=== PATIENT | female | born 1975 | race Caucasian/White ===

== ENCOUNTER 2017-06-14 19:01 | Emergency (ER) | payer MEDICAID, OTHER ==
[2017-06-14 20:25] LABS: Basophils % (A) 0 %; Eosinophils % (A) 0 %; HCT 43.1 % (34.0-46.0); Lymphocytes # (A) 1.3 k/uL (1.0-4.8); Lymphocytes % (A) 12 %; MCH 28.7 pg (25.0-35.0); MCHC 32.5 g/dL (31.0-37.0); MCV 88.3 fL (80.0-100.0); Mean Platelet Volume 6.7; Monocytes # (A) 0.3 k/uL (0-1.0); Monocytes % (A) 3 %; Neutrophils % (A) 84 %; Platelet Count 324 k/uL (150-450); RBC 4.89 m/uL (3.80-5.40); RDW 12.7 % (11.5-15.5); WBC 10.7 k/uL (3.8-10.6)
[2017-06-14 20:34] LABS: ALT 18 U/L (9-52); AST 19 U/L (14-36); Albumin 4.8 g/dL (3.5-5.0); Alkaline Phosphatase 57 U/L (38-126); Amylase 69 U/L (30-110); Anion Gap 13 mmol/L; Blood Urea Nitrogen 7 mg/dL (7-17); Calcium 10.6 mg/dL (8.4-10.2); Carbon Dioxide 24 mmol/L (22-30); Chloride 102 mmol/L (98-107); Glucose 105 mg/dL (74-99); Lipase 99 U/L (23-300); Potassium 3.9 mmol/L (3.5-5.1); Sodium 139 mmol/L (137-145); Total Bilirubin 0.6 mg/dL (0.2-1.3)
[2017-06-14] MEDS ORDERED: ONDANSETRON 4 MG/2 ML VIAL IVP STA (20:44)
[2017-06-14] MEDS ORDERED: SODIUM CHLORIDE 0.9% 1,000 ML IV STA (20:44)
[2017-06-14] MEDS ORDERED: FAMOTIDINE 20 MG/2 ML VIAL IV STA (20:44)
[2017-06-14] MEDS ORDERED: RX INFO: IV CONTRAST WAS GIVEN 1 EACH MISC MISCELLANE PRN (20:45)
--- NOTE | 2017-06-14 20:57 | ED ---
General Adult HPI - General Chief complaint: Abdominal Pain Stated complaint: ABDOMINAL PAIN Time Seen by Provider: 06/14/17 20:38 Source: patient, RN notes reviewed Mode of arrival: ambulatory Limitations: no limitations - History of Present Illness Initial comments: 42-year-old female presents to the emergency department with epigastric abdominal pain. Patient states this started around 9 AM this morning. She states if she lays back the pain is worse she feels better with leaning forward. She states some nausea no vomiting. The patient has had no cough. Patient states there is been no fevers. She denies any lower abdominal pain. She denies any history of this in the past. She states she had one drink last night. Patient states she was concerned because her pain has just continued for the last 12 hours. She was concerned due to the continued pain and the fact it does not seem to be improving so she thought that she should be seen. Patient denies any recent fever, chills, shortness of breath, chest pain, back pain, mvomiting, numbness or tingling, dysuria or hematuria, constipation or diarrhea, headaches or visual changes, or any other current symptoms. - Related Data Home Medications Medication Instructions Recorded Confirmed Aspirin/Acetaminophen/Caffeine 1 - 2 tab PO Q6H PRN 06/14/17 06/14/17 [Excedrin Migraine Caplet] Magnesium Oxide [Mag-Ox] 250 mg PO DAILY 06/14/17 06/14/17 Venlafaxine HCl [Effexor] 150 mg PO DAILY 06/14/17 06/14/17 Previous Rx's Medication Instructions Recorded Mag Hydrox/Al Hydrox/Simeth 10 ml PO QID 10 Days ml 06/14/17 [Maalox] Allergies Allergy/AdvReac Type Severity Reaction Status Date / Time sulfamethoxazole Allergy Rash/Hives Verified 06/14/17 20:51 [From Bactrim] trimethoprim [From Bactrim] Allergy Rash/Hives Verified 06/14/17 20:51 Review of Systems ROS Statement: Those systems with pertinent positive or pertinent negative responses have been documented in the HPI. ROS Other: All systems not noted in ROS Statement are negative. Past Medical History Additional Past Medical History / Comment(s): neurofibromytosis type II. History of Any Multi-Drug Resistant Organisms: None Reported Past Surgical History: Adenoidectomy, Section, Tonsillectomy Additional Past Surgical History / Comment(s): craniotomy X3. skin cancer removal from right shoulder. Past Psychological History: Depression Smoking Status: Never smoker Past Alcohol Use History: Occasional Past Drug Use History: None Reported General Exam - General Exam Comments Initial Comments: General: The patient is awake and alert, in no distress, and does not appear acutely ill. Eye: Pupils are equal, round and reactive to light, extra-ocular movements are intact; there is normal conjunctiva bilaterally. No signs of icterus. Ears, nose, mouth and throat: There are moist mucous membranes. Neck: The neck is supple, there is no tenderness. Cardiovascular: There is a regular rate and rhythm. No murmur, rub or gallop is appreciated. Respiratory: Lungs are clear to auscultation, respirations are non-labored, breath sounds are equal. No wheezes, stridor, rales, or rhonchi. Gastrointestinal: Soft, non-distended, epigastric tender abdomen without masses or organomegaly noted. There is no rebound or guarding present. No CVA tenderness. Bowel sounds are unremarkable. Back: There is no tenderness to palpation in the midline. There is no obvious deformity. No rashes noted. Musculoskeletal: Normal ROM, no tenderness, There is no pedal edema. There is no calf tenderness or swelling. Sensation intact. Pulses equal bilaterally 2+. Neurological: CN II-XII intact, There are no obvious motor or sensory deficits. Coordination appears grossly intact. Speech is normal. Skin: Skin is warm and dry and no rashes or lesions are noted. Psychiatric: Cooperative, appropriate mood & affect, normal judgment. Limitations: no limitations Course Vital Signs 06/14/17 06/14/17 19:19 23:33 Temperature 98.8 F Pulse Rate 83 82 Respiratory 16 18 Rate Blood Pressure 112/65 122/60 O2 Sat by Pulse 100 100 Oximetry Medical Decision Making - Medical Decision Making 42-year-old female presents for epigastric abdominal pain. At this time patient does appear to have improvement with the GI cocktail. At this time we discussed most likely a gastritis. However there is other etiologies and when to return.. We discussed follow-up with GI. We will start the patient on medication for home. Patient is in agreement this plan all questions have been answered. Patient will be discharged. We did discuss follow-up on the urine culture. - Lab Data Result diagrams: 06/14/17 20:15 06/14/17 20:15 Lab Results 06/14/17 06/14/17 06/14/17 Range/Units 20:00 20:00 20:15 WBC (3.8-10.6) k/uL RBC (3.80-5.40) m/uL Hgb (11.4-16.0) gm/dL Hct (34.0-46.0) % MCV (80.0-100.0) fL MCH (25.0-35.0) pg MCHC (31.0-37.0) g/dL RDW (11.5-15.5) % Plt Count (150-450) k/uL Neutrophils % % Lymphocytes % % Monocytes % % Eosinophils % % Basophils % % Neutrophils # (1.3-7.7) k/uL Lymphocytes # (1.0-4.8) k/uL Monocytes # (0-1.0) k/uL Eosinophils # (0-0.7) k/uL Basophils # (0-0.2) k/uL Sodium 139 (137-145) mmol/L Potassium 3.9 (3.5-5.1) mmol/L Chloride 102 (98-107) mmol/L Carbon Dioxide 24 (22-30) mmol/L Anion Gap 13 mmol/L BUN 7 (7-17) mg/dL Creatinine 0.60 (0.52-1.04) mg/dL Est GFR (CKD-EPI)AfAm >90 (>60 ml/min/1.73 sqM) Est GFR (CKD-EPI)NonAf >90 (>60 ml/min/1.73 sqM) Glucose 105 H (74-99) mg/dL Calcium 10.6 H (8.4-10.2) mg/dL Total Bilirubin 0.6 (0.2-1.3) mg/dL AST 19 (14-36) U/L ALT 18 (9-52) U/L Alkaline Phosphatase 57 (38-126) U/L Total Protein 8.0 (6.3-8.2) g/dL Albumin 4.8 (3.5-5.0) g/dL Amylase 69 (30-110) U/L Lipase 99 (23-300) U/L Urine Color Yellow Urine Appearance Cloudy H (Clear) Urine pH 8.0 (5.0-8.0) Ur Specific Bonner 1.016 (1.001-1.035) Urine Protein Negative (Negative) Urine Glucose (UA) Negative (Negative) Urine Ketones Negative (Negative) Urine Blood Negative (Negative) Urine Nitrite Negative (Negative) Urine Bilirubin Negative (Negative) Urine Urobilinogen <2.0 (<2.0) mg/dL Ur Leukocyte Esterase Large H (Negative) Urine RBC 1 (0-5) /hpf Urine WBC 12 H (0-5) /hpf Ur Squamous Epith Cells 5 H (0-4) /hpf Urine Bacteria Occasional H (None) /hpf Urine Mucus Rare H (None) /hpf Urine HCG, Qual Not Detected (Not Detectd) 06/14/17 Range/Units 20:15 WBC 10.7 H (3.8-10.6) k/uL RBC 4.89 (3.80-5.40) m/uL Hgb 14.0 (11.4-16.0) gm/dL Hct 43.1 (34.0-46.0) % MCV 88.3 (80.0-100.0) fL MCH 28.7 (25.0-35.0) pg MCHC 32.5 (31.0-37.0) g/dL RDW 12.7 (11.5-15.5) % Plt Count 324 (150-450) k/uL Neutrophils % 84 % Lymphocytes % 12 % Monocytes % 3 % Eosinophils % 0 % Basophils % 0 % Neutrophils # 9.0 H (1.3-7.7) k/uL Lymphocytes # 1.3 (1.0-4.8) k/uL Monocytes # 0.3 (0-1.0) k/uL Eosinophils # 0.0 (0-0.7) k/uL Basophils # 0.0 (0-0.2) k/uL Sodium (137-145) mmol/L Potassium (3.5-5.1) mmol/L Chloride (98-107) mmol/L Carbon Dioxide (22-30) mmol/L Anion Gap mmol/L BUN (7-17) mg/dL Creatinine (0.52-1.04) mg/dL Est GFR (CKD-EPI)AfAm (>60 ml/min/1.73 sqM) Est GFR (CKD-EPI)NonAf (>60 ml/min/1.73 sqM) Glucose (74-99) mg/dL Calcium (8.4-10.2) mg/dL Total Bilirubin (0.2-1.3) mg/dL AST (14-36) U/L ALT (9-52) U/L Alkaline Phosphatase (38-126) U/L Total Protein (6.3-8.2) g/dL Albumin (3.5-5.0) g/dL Amylase (30-110) U/L Lipase (23-300) U/L Urine Color Urine Appearance (Clear) Urine pH (5.0-8.0) Ur Specific Bonner (1.001-1.035) Urine Protein (Negative) Urine Glucose (UA) (Negative) Urine Ketones (Negative) Urine Blood (Negative) Urine Nitrite (Negative) Urine Bilirubin (Negative) Urine Urobilinogen (<2.0) mg/dL Ur Leukocyte Esterase (Negative) Urine RBC (0-5) /hpf Urine WBC (0-5) /hpf Ur Squamous Epith Cells (0-4) /hpf Urine Bacteria (None) /hpf Urine Mucus (None) /hpf Urine HCG, Qual (Not Detectd) - Radiology Data Radiology results: report reviewed, image reviewed Disposition Clinical Impression: Abdominal pain, Gastritis Disposition: HOME SELF-CARE Condition: Stable Instructions: Abdominal Pain (ED), Gastritis (ED) Additional Instructions: Please use medication as discussed. Please follow up with family doctor if symptoms have not improved over the next two days. Please return to the emergency room if your symptoms increase or worsen or for any other concerns. Prescriptions: Mag Hydrox/Al Hydrox/Simeth [Maalox] 10 ml PO QID 10 Days ml Referrals: Onel Valenzulea DO [Primary Care Provider] - 1-2 days Clyde Denis MD [STAFF PHYSICIAN] - 1-2 days Time of Disposition: 23:45
[2017-06-14 21:42] LABS: Appearance,Urine Cloudy (Clear); Bacteria,Urine Occasional /hpf; Bilirubin,Urine Negative (Negative); Blood,Urine Negative (Negative); Color,Urine Yellow; Glucose,Urine (UA) Negative (Negative); Ketones,Urine Negative (Negative); Leukocyte Esterase,Urine Large (Negative); Mucus,Urine Rare /hpf; Nitrite,Urine Negative (Negative); Protein,Urine Negative (Negative); RBC,Urine 1 /hpf (0-5); Specific Gravity,Urine 1.016 (1.001-1.035); Squamous Epithelial Cell,Urine 5 /hpf (0-4); Urobilinogen,Urine <2.0 mg/dL (<2.0); WBC,Urine 12 /hpf (0-5)
--- NOTE | 2017-06-14 22:43 | CT ---
EXAMINATION TYPE: CT abdomen pelvis w con DATE OF EXAM: 06/14/2017 COMPARISON: NONE HISTORY: Epigastric pain, nausea and fever today. CT DLP: 375.7 mGycm Automated exposure control for dose reduction was used. TECHNIQUE: Helical acquisition of images was performed from the lung bases through the pelvis. CONTRAST: Performed without Oral Contrast and with IV Contrast, patient injected with 100 mL of Omnipaque 300. FINDINGS: Lung bases are clear. There is no pleural effusion. Heart size is normal. Liver spleen pancreas gallbladder appear normal. Bile ducts are not dilated. There is no adrenal mass. Kidneys show satisfactory contrast opacification. There is no hydronephrosi s. Ureters are not dilated. There is no retroperitoneal adenopathy. There is no ascites. Bladder dist ends smoothly. There is no free fluid in the pelvis. Appendix is not seen. There is no sign of append icitis. I see no bony destructive process. Lumbar spine is intact. Uterus is retroverted. I see no in testinal wall thickening. There are no dilated loops. IMPRESSION: NEGATIVE CT SCAN OF THE ABDOMEN AND PELVIS. I DO NOT SEE A CAUSE FOR EPIGASTRIC PAIN.
[2017-06-14] MEDS ORDERED: MAG HYDROX/AL HYDROX/SIMETH 30 ML, HYOSCYAMINE ELIXIR 10 ML, CIMETIDINE HCL 300 MG, LID... PO STA ×4 (23:01)
[2017-06-14 23:34] VITALS: RESP 18
[2017-06-14 23:58] VITALS: BP 121/69; PULSE 73; TEMP 98.6
== END 2017-06-14 23:58 | disposition home or self-care (01) ==
LOC: EC 19:01
DX: K29.70 Gastritis, unspecified, without bleeding (principal); F32.9 Major depressive disorder, single episode, unspecified; Z79.899 Other long term (current) drug therapy; Z88.2 Allergy status to sulfonamides
CPT/HCPCS: 36415; 80053; 82150; 83690; 85025; 81001; 81025; 87086; 74177; 99284; 96374; 96375; 96361; J2405; Q9967

== ENCOUNTER 2020-08-20 11:19 | Day surgery (SDC) | payer MEDICAID ==
[2020-08-16 15:21] VITALS: BMI 23.3
--- NOTE | 2020-08-20 09:09 | P.HPOB ---
History of Present Illness H&P Date: 08/20/20 Chief Complaint: menorrhagia 45 year old presents for D&C hysteroscopy and endometrial ablation with NovaSure. Review of Systems All systems: negative Constitutional: Denies chills, Denies fever Eyes: denies blurred vision, denies pain Ears, nose, mouth and throat: Denies headache, Denies sore throat Cardiovascular: Denies chest pain, Denies shortness of breath Respiratory: Denies cough Gastrointestinal: Denies abdominal pain, Denies diarrhea, Denies nausea, Denies vomiting Genitourinary: Denies dysuria, Denies hematuria Musculoskeletal: Denies myalgias Integumentary: Denies pruritus, Denies rash Neurological: Denies numbness, Denies weakness Psychiatric: Denies anxiety, Denies depression Endocrine: Denies fatigue, Denies weight change Past Medical History Past Medical History: Cancer, Hearing Disorder / Deafness Additional Past Medical History / Comment(s): Hx Skin Cancer on right shoulder. Deaf in left ear. Neurofibromatosis Type II (non-cancerous brain tumors). PFO (Patent Foramen Ovale). History of Any Multi-Drug Resistant Organisms: None Reported Past Surgical History: Adenoidectomy, Section, Tonsillectomy Additional Past Surgical History / Comment(s): Craniotomy X5. Skin Cancer remoedl from right shoulder. Past Anesthesia/Blood Transfusion Reactions: No Reported Reaction Past Psychological History: Depression Smoking Status: Never smoker Past Alcohol Use History: Occasional Past Drug Use History: None Reported - Past Family History Mother Family Medical History: No Reported History Medications and Allergies Home Medications Medication Instructions Recorded Confirmed Type ARIPiprazole [Abilify] 2 mg PO 1500 08/16/20 08/16/20 History Topiramate [Topamax] 50 mg PO BID 08/16/20 08/16/20 History Venlafaxine HCl [Effexor XR] 225 mg PO 1500 08/16/20 08/16/20 History Allergies Allergy/AdvReac Type Severity Reaction Status Date / Time sulfamethoxazole Allergy Rash/Hives Verified 08/16/20 15:07 [From Bactrim] trimethoprim [From Bactrim] Allergy Rash/Hives Verified 08/16/20 15:07 Exam Osteopathic Statement: *. No significant issues noted on an osteopathic structural exam other than those noted in the History and Physical/Consult. HEart: RRR Lungs: CTAB Abdomen: soft, nontender Extremeties: neg addison's Assessment and Plan (1) Menorrhagia Status: Acute Code(s): N92.0 - EXCESSIVE AND FREQUENT MENSTRUATION WITH REGULAR CYCLE SNOMED Code(s): 401718489 Plan: 1. D&C hysteroscopy and endometrial ablation with NovaSure
[~2020-08-20 11:19] MED LIST: DEXAMETHASONE SOD PHOSPHATE 4 MG/ML 1 ML VIAL IV ONE; HYDROmorphone 0.5 MG/0.5 ML SYRINGE IVP PRN; LACTATED RINGERS 1,000 ML IV SCH; ONDANSETRON 4 MG/2 ML VIAL IVP ONE; Pre Op ABX Message 1 EACH MISC MISCELLANE ONE
[2020-08-20] MEDS ORDERED: LIDOCAINE 1% (10MG/ML) FOR IV START INTRADERMA ONE (11:53)
[2020-08-20] MEDS ORDERED: MIDAZOLAM 2 MG/2 ML VIAL ONE (13:10)
[2020-08-20] MEDS ORDERED: LIDOCAINE 1% INJ 10MG/ML (20 ML MDV) ONE (13:10)
[2020-08-20] MEDS ORDERED: PROPOFOL 10 MG/ML 20 ML VIAL IV ONE (13:10)
[2020-08-20] MEDS ORDERED: fentaNYL (PF) 50 MCG/ML 2 ML AMP ONE (13:10)
[2020-08-20] MEDS ORDERED: KETOROLAC 15 MG/ML 1 ML VIAL ONE (13:10)
--- NOTE | 2020-08-20 13:43 | P.OP ---
Date of Procedure: 08/20/20 Preoperative Diagnosis: 1. Menorrhagia Postoperative Diagnosis: 1. Menorrhagia Procedure(s) Performed: D&C hysteroscopy and endometrial ablation with NovaSure Anesthesia: MAC Surgeon: Sabrina Paniagua Estimated Blood Loss (ml): 2 IV fluids (ml): 300 Urine output (ml): 70 Pathology: other (endometrial currettings) Condition: stable Disposition: PACU Operative Findings: Uterus sounded to 8cm. cavity length 6 cm, width 4.5 cm, time of ablation 149 W for 51 seconds. Adequate ablation after NovaSure. Description of Procedure: Patient is taken the operating room where general anesthesia was obtained wit ligia regan. She was prepped and draped in normal sterile fashion dorsal lithotomy position, legs placed in the candy cane stirrups. Bladder was drained of all urine. Weighted speculum placed in the vagina and the anterior lip the cervix was grasped with serial tooth tenaculum. The uterus sounded to 8 cm and the cervix under 2 cm making the cavity length 6 cm. The cervix was dilated to #8 Hegar dilator. Hysteroscopy was then performed. Both ostia were visualized and there was a smooth contour of the uterus. Sharp curet was then gently used to obtain endometrial curettings. The NovaSure was introduced into the uterus with a cavity length of 6.5 cm, width 3.5 cm. after cavity assessment was passed, the time of ablation was 51 seconds at 149 W. Hysteroscopy was again performed and adequate ablation was noted. All instruments removed from the vagina. Patient tolerated the procedure well, sponge and instrument counts were correct 2 and she was taken to recovery in stable condition.
[2020-08-20 13:51] VITALS: TEMP 98.4
[2020-08-20 15:38] VITALS: BP 110/74; PULSE 70; RESP 16
== END 2020-08-20 15:46 | disposition home or self-care (01) ==
LOC: OR 11:19
PROVIDERS: ATTEND Obstetrics & Gynecology
DX: N92.0 Excessive and frequent menstruation with regular cycle (principal); Z85.828 Personal history of other malignant neoplasm of skin; H91.92 Unspecified hearing loss, left ear; Q85.02 Neurofibromatosis, type 2; Q21.1 Atrial septal defect; Z98.891 History of uterine scar from previous surgery; Z90.89 Acquired absence of other organs; Z98.890 Other specified postprocedural states; F32.9 Major depressive disorder, single episode, unspecified; Z79.899 Other long term (current) drug therapy; Z88.2 Allergy status to sulfonamides
CPT/HCPCS: 81025; 88305; 58563; J2250; J1100; J2405; J2001; J3010; J1885; J2704

== ENCOUNTER → 2021-08-27 | Outpatient (CLI) | payer MEDICAID ==
[2021-08-27 15:54] LABS: African American GFR (CKD) 103.2 (60.0-200.0); Anion Gap 12.1 mmol/L (10.00-18.00); BUN/Creat Ratio 8.63 Ratio (12.00-20.00); Blood Urea Nitrogen 6.9 mg/dL (9.0-27.0); Calcium 9.1 mg/dL (8.7-10.3); Carbon Dioxide 18.9 mmol/L (20.0-27.5); Magnesium 2.3 mg/dL (1.5-2.4); Potassium 3.9 mmol/L (3.5-5.5)
== END | disposition home or self-care (01) ==
LOC: LABWHC1 08:52
PROVIDERS: ATTEND Nurse Practitioner
DX: D32.9 Benign neoplasm of meninges, unspecified (principal)
CPT/HCPCS: 36415; 80048; 83735

== ENCOUNTER 2022-07-01 10:47 | Day surgery (SDC) | payer MEDICAID ==
[2022-06-26 15:30] VITALS: BMI 23.3
[~2022-07-01 10:47] MED LIST changes: -DEXAMETHASONE SOD PHOSPHATE 4 MG/ML 1 ML VIAL IV ONE; -HYDROmorphone 0.5 MG/0.5 ML SYRINGE IVP PRN; +LIDOCAINE 1% (10MG/ML) FOR IV START INTRADERMA PRN; -ONDANSETRON 4 MG/2 ML VIAL IVP ONE; -Pre Op ABX Message 1 EACH MISC MISCELLANE ONE
[2022-07-01 11:57] VITALS: TEMP 97.6
[2022-07-01] MEDS ORDERED: PROPOFOL 10 MG/ML 20 ML VIAL IV ONE (12:26)
--- NOTE | 2022-07-01 12:41 | P.PCN ---
Date of Procedure: 07/01/22 Procedure(s) Performed: BRIEF HISTORY: Patient is a 47-year-old [place] female scheduled for an elective colonoscopy as a part of screening for colon cancer. PROCEDURE PERFORMED: Colonoscopy. PREOPERATIVE DIAGNOSIS: Screening for colon cancer. IV sedation per Anesthesia. PROCEDURE: After informed consent was obtained, the patient, was brought into the endoscopy unit. IV sedation was administered by Anesthesia under continuous monitoring. Digital rectal examination was normal. Initially the Olympus CF-160 flexible video colonoscope was then inserted in the rectum, gradually advanced into the cecum without any difficulty. Careful examination was performed as the scope was gradually being withdrawn. Ileocecal valve and the appendiceal orifice were visualized and appeared normal. Prep was excellent. Mucosa of the cecum, ascending colon, transverse colon, descending colon, sigmoid colon, and rectum appeared normal. Retroflexion was performed in the rectum and no lesions were seen. The patient tolerated the procedure well. IMPRESSION: Normal-appearing colon from rectum to cecum no evidence of colorectal neoplasia . RECOMMENDATIONS: Findings of this examination were discussed with the patient as well as a family.. She was advised to have a repeat screening colonoscopy in 10 years.
[2022-07-01 13:14] VITALS: BP 102/67; PULSE 68; RESP 16
== END 2022-07-01 13:22 | disposition home or self-care (01) ==
LOC: ORWHC2ENDO 10:47
PROVIDERS: ATTEND Internal Medicine Gastroenterology
DX: Z12.11 Encounter for screening for malignant neoplasm of colon (principal); K21.9 Gastro-esophageal reflux disease without esophagitis; Z88.8 Allergy status to other drugs, medicaments and biological substances; Z79.899 Other long term (current) drug therapy
CPT/HCPCS: 45378; 81025; J2704

== ENCOUNTER → 2022-11-26 | Outpatient (CLI) | payer MEDICAID ==
--- NOTE | 2022-12-02 08:20 | MM ---
Reason for Exam: Screening (asymptomatic). Patient History: Menarche at age 13. First Full-Term at age 26. Perimenopausal. Other cancer. Risk Values: Trisha 5 year model risk: 0.9%. NCI Lifetime model risk: 10.5%. Tissue Density: The breast tissue is heterogeneously dense. This may lower the sensitivity of mammography. Findings: Analyzed By CAD. There is no suspicious group of microcalcifications or new suspicious mass in either breast. Overall Assessment: Negative, BI-RAD 1 Management: Screening Mammogram of both breasts in [address] [facility] will attempt to contact patient to return for supplemental views and ultrasound if indicated. Patient should continue monthly self-breast exams. A clinical breast exam by your physician is recommended on an annual basis. This exam should not preclude additional follow-up of suspicious palpable abnormalities. Note on Trisha scores and lifetime risk: 1. A Trisha score greater than 3% is considered moderate risk. If this is the case, consider specialist referral to assess eligibility for a risk reducing agent. 2. If overall lifetime risk for the development of breast cancer is 20% or higher, the patient may qualify for future screening with alternating mammogram and breast MRI. Electronically signed and approved by: Suhail Morris DO
== END | disposition home or self-care (01) ==
LOC: RADMAMWWP 15:09
PROVIDERS: ATTEND Obstetrics & Gynecology
DX: Z12.31 Encounter for screening mammogram for malignant neoplasm of breast (principal)
CPT/HCPCS: 77063; 77067

== ENCOUNTER → 2024-02-04 | Outpatient (CLI) | payer MEDICAID ==
--- NOTE | 2024-02-08 08:47 | MM ---
Reason for Exam: Screening (asymptomatic). Last mammogram was performed 1 year(s) and 3 month(s) ago. Patient History: Menarche at age 13. First Full-Term at age 26. Perimenopausal. Other cancer. Last menstrual period: 08/11/2020 Risk Values: Trisha 5 year model risk: 1.0%. NCI Lifetime model risk: 10.3%. Prior Study Comparison: 11/26/2022 Bilateral MG 3D screening mammo w/cad, [facility]. Tissue Density: The breasts are heterogeneously dense, which may obscure small masses. Findings: Analyzed By CAD. Right breast: There is no suspicious group of microcalcifications or new suspicious mass. Left breast: There is no suspicious group of microcalcifications or new suspicious mass. Overall Assessment: Negative, BI-RAD 1 Management: Screening Mammogram of both breasts in [address] [facility] will attempt to contact patient to return for supplemental views and ultrasound if indicated. Patient should continue monthly self-breast exams. A clinical breast exam by your physician is recommended on an annual basis. This exam should not preclude additional follow-up of suspicious palpable abnormalities. Note on Trisha scores and lifetime risk: 1. A Trisha score greater than 3% is considered moderate risk. If this is the case, consider specialist referral to assess eligibility for a risk reducing agent. 2. If overall lifetime risk for the development of breast cancer is 20% or higher, the patient may qualify for future screening with alternating mammogram and breast MRI. [facility], , 02/08/2024 8:44 AM. Electronically signed and approved by: Suhail Morris DO
== END | disposition home or self-care (01) ==
LOC: RADMAMWWP 08:32
PROVIDERS: ATTEND Family Medicine
DX: Z12.31 Encounter for screening mammogram for malignant neoplasm of breast (principal); R92.333 Mammographic heterogeneous density, bilateral breasts
CPT/HCPCS: 77063; 77067

== ENCOUNTER → 2024-07-12 | Outpatient (CLI) | payer MEDICAID ==
--- NOTE | 2024-07-12 12:39 | XR ---
EXAMINATION TYPE: XR foot complete LT DATE OF EXAM: 07/12/2024 12:02 PM INDICATION: Patient age:Female; 49 years old; Reason for study: R2242 LOCAL SWELLING; [facility]. pain COMPARISON: None TECHNIQUE: The left foot was examined in the AP, oblique, and lateral projections. FINDINGS: No evidence of any acute osseous pathology. Focal soft tissue prominence over the dorsal mid foot. J oints are preserved. 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 Small plantar calcaneal enthesophyte. No osseous erosions or radiopaque foreign body. IMPRESSION: 1. No evidence of acute fracture. 2. Nonspecific focal soft tissue prominence over the dorsal mid foot. Consider further evaluation wi ultrasound or MRI. [facility], , 07/12/2024 12:36 PM
== END | disposition home or self-care (01) ==
LOC: RADXRYALE 11:52
PROVIDERS: ATTEND Physician Assistant Medical
DX: R22.42 Localized swelling, mass and lump, left lower limb (principal)